=== PATIENT | male | born 1960 | race Caucasian/White ===

== ENCOUNTER 2019-02-10 19:01 | Emergency (ER) | payer MEDICAID ==
[~2019-02-10] VITALS: Ht 185.4 cm; Wt 88.5 kg
[2019-02-10 19:05] VITALS: BP_SYST 146
--- NOTE | 2019-02-10 19:10 | NUR ---
Patient to ER bed 6 to gown for evaluation. Side rails up. Report given to ETHEL PUENTES.
--- NOTE | 2019-02-10 19:25 | NUR ---
Pt attempted to walk out of the ED after EMS placed patient in bed 6. Pt has a laceration to the back of the head currently bleeding and walking with unsteady gait. Pt admits to drinking alcohol this afternoon. Pt was brought in today for laceration S/P fall. Pt denies KO, N/V or any other complaints at this time.
--- NOTE | 2019-02-10 19:30 | NUR ---
Dressing placed by EMS was removed and laceration is being cleaned with NS
--- NOTE | 2019-02-10 19:45 | NUR ---
ER Dr. Lugo at bedside examining patient.
[2019-02-10] MEDS ORDERED: LIDOCAINE/EPI 1% 1:100000 20 ML VIAL INJ ONE (20:02)
--- NOTE | 2019-02-10 20:10 | NUR ---
Patient has a laceration to posterior head. Dr. Lugo applied niko using sterile technique. Edges well approximated. Site cleansed with NS. Dressing of guaze applied to site. No bleeding noted. Pt tolerated well.
[2019-02-10] MEDS ORDERED: BACITRACIN 1 GM OINT TP ONE (20:28)
[2019-02-10] MEDS ORDERED: NACL 0.9% 1,000 ML IV ONE (20:30)
--- NOTE | 2019-02-10 20:31 | NUR ---
Radiology at bedside for xray
[2019-02-10 20:49] LABS: BASOPHILS # (AUTO) 0.1 K/uL (0.0-0.2); BASOPHILS % (AUTO) 0.7 % (0.0-2.0); EOSINOPHILS # (AUTO) 0.1 K/uL (0.0-0.4); EOSINOPHILS % (AUTO) 1.2 % (0.0-4.0); HEMATOCRIT 46.9 % (36-54); LYMPHOCYTES # (AUTO) 1.6 K/uL (1.0-5.5); LYMPHOCYTES % (AUTO) 21.9 % (20.5-51.5); MEAN CORPUSCULAR HEMOGLOBIN 31 pg (27-31); MEAN CORPUSCULAR HGB CONC 34 % (32-36); MEAN CORPUSCULAR VOLUME 91 fL (79.0-98.0); MONOCYTES # (AUTO) 0.4 K/uL (0.0-1.0); MONOCYTES % (AUTO) 5.7 % (1.7-9.3); NEUTROPHILS # (AUTO) 5.2 K/uL (1.8-7.7); NEUTROPHILS % (AUTO) 70.5 % (40.0-70.0); PLATELET COUNT (AUTO) 154 K/uL (130-430); RED BLOOD CELL COUNT(AUTO) 5.16 MIL/uL (4.2-6.2); RED CELL DISTRIBUTION WIDTH 13.5 % (9.0-15.0); WHITE BLOOD COUNT (AUTO) 7.3 K/uL (4.8-10.8)
[2019-02-10 21:03] LABS: CALCIUM 8.8 mg/dL (8.4-11.0); CREATININE 0.94 mg/dL (0.55-1.30); POTASSIUM 4.1 mmol/L (3.5-5.1)
[2019-02-10 21:05] LABS: BARBITURATE, URINE NEGATIVE (NEG <=200); BENZODIAZEPINE, URINE POSITIVE (NEG <=150); BILIRUBIN,URINE NEGATIVE (NEGATIVE); BLOOD, URINE NEGATIVE (NEGATIVE); CANNABINOID, URINE NEGATIVE (NEG <=50); CLARITY/URINE CLEAR (CLEAR); COCAINE, URINE NEGATIVE (NEG <=150); COLOR,URINE YELLOW (YELLOW); GLUCOSE,URINE NEGATIVE (NEGATIVE); KETONES,URINE NEGATIVE (NEGATIVE); LEUKOCYTE ESTERASE ,URINE NEGATIVE (NEGATIVE); METHAMPHETAMINES SCREEN,URINE NEGATIVE (NEG <=500); NITRITE, URINE NEGATIVE (NEGATIVE); OPIATE, URINE NEGATIVE (NEG <=100); PHENCYCLIDINE SCREEN,URINE NEGATIVE (NEG <=25); PROTEIN URINE NEGATIVE (NEGATIVE); UR TRICYCLIC ANTIDEPRESSANTS NEGATIVE (NEG <=300); URINE AMPHETAMINE NEGATIVE (NEG <=500); URINE METHADONE NEGATIVE (NEG <=200); URINE OXYCODONE SCREEN NEGATIVE (NEG <=100); URINE PROPOXYPHENE SCREEN NEGATIVE (NEG <=300); UROBILINOGEN,URINE 0.2 (0.2-1.0)
[2019-02-10 21:08] LABS: ALBUMIN 3.8 g/dL (3.4-4.8); TOTAL BILIRUBIN 0.4 mg/dL (0.0-1.0)
[2019-02-10 21:34] VITALS: BP_SYST 146
--- NOTE | 2019-02-10 21:34 | NUR ---
Pt eloped without being discharged. IV discontinued
== END 2019-02-10 21:34 | disposition left against medical advice (07) ==
LOC: SED 19:01
DX: S01.01XA Laceration without foreign body of scalp, initial encounter (principal); F10.129 Alcohol abuse with intoxication, unspecified; F17.210 Nicotine dependence, cigarettes, uncomplicated; R03.0 Elevated blood-pressure reading, without diagnosis of hypertension; Z88.1 Allergy status to other antibiotic agents; Z85.51 Personal history of malignant neoplasm of bladder; Z53.20 Procedure and treatment not carried out because of patient's decision for unspecified reasons; W19.XXXA Unspecified fall, initial encounter; Y93.89 Activity, other specified; Y92.89 Other specified places as the place of occurrence of the external cause; Y99.8 Other external cause status
CPT/HCPCS: 12004; 36415; 70450; 71045; 80053; 80307; 81003; 84484; 85025; 85610; 85730; 93005; 99284; G0482; J7030